=== PATIENT | male | born 1985 | race Caucasian/White ===

== ENCOUNTER 2018-03-31 17:42 | Emergency (ER) | payer BC ==
[2018-03-31 18:16] VITALS: BP 132/90
--- NOTE | 2018-03-31 18:25 | UC ---
General HPI - HPI Summary HPI Summary: Patient presents complaining of "severe pain along the right side of his neck" he states that this began about 3 weeks ago. He first noted the pain upon waking one morning and at that time the pain was in the base of his head on the right side and shooting into his right neck. He states that when the pain becomes severe it shoots right through his head into his right eye. He notes that this also causes him to have blurry vision in his right eye and the right eye turns red. He states that he has taken some ibuprofen without relief. During the course of these headaches he's had chiropractic adjustments approximately 4-5 times which may give him transient relief lasting anywhere from minutes to days. He notes that the current headache is an 11 out of 10. He admits that he's never had a headache this severe before. When the headaches reached their highest intensity they also cause him to have nausea. He denies any associated history of injury or illness. He denies any sensitivity to light or noise. He has no family history of headache or aneurysms. He saw the chiropractor today who ordered a c-spine xrays and sent him here. Pt denies and numbness or weakness to his arms or legs. - History of Current Complaint Chief Complaint: UCGeneralIllness Stated Complaint: NECK PAIN Time Seen by Provider: 03/31/18 18:07 Hx Obtained From: Patient Pain Intensity: 10 Associated Signs & Symptoms: Positive: Headache. Negative: Fever - Allergy/Home Medications Allergies/Adverse Reactions: Allergies Allergy/AdvReac Type Severity Reaction Status Date / Time Penicillins Allergy Unknown Verified 03/31/18 18:07 Reaction Details Home Medications: Home Medications Pantoprazole TAB (NF) [Protonix TAB (NF)] 20 mg PO BID 03/31/18 [History Confirmed 03/31/18] PMH/Surg Hx/FS Hx/Imm Hx Previously Healthy: Yes - Surgical History Surgical History: Yes Surgery Procedure, Year, and Place: Right outer ear surgery as an infant - Family History Known Family History: Positive: Blood Disorder - Social History Occupation: Employed Full-time Alcohol Use: every other day Substance Use Type: None Smoking Status (MU): Heavy Every Day Tobacco Smoker Type: Smokeless Tobacco Amount Used/How Often: 1/2 can daily Length of Time of Smoking/Using Tobacco: Since Age 28 - Immunization History Vaccination Up to Date: Yes Review of Systems Constitutional: Negative Skin: Negative Eyes: Negative ENT: Negative Respiratory: Negative Cardiovascular: Negative Gastrointestinal: Nausea Genitourinary: Negative Motor: Negative Neurovascular: Negative Musculoskeletal: Other: - R neck pain Neurological: Headache Psychological: Negative Is Patient Immunocompromised?: No All Other Systems Reviewed And Are Negative: Yes Physical Exam Triage Information Reviewed: Yes Appearance: Pain Distress Vital Signs: Initial Vital Signs Temp 98.7 F 03/31/18 18:05 Pulse 65 03/31/18 18:05 Resp 16 03/31/18 18:05 BP 132/90 03/31/18 18:05 Pulse Ox 100 03/31/18 18:05 Vital Signs Reviewed: Yes Eyes: Positive: Other: - ? slight buldge R eye. No periorbital edema. Conjunctiva on R injected. PERRL, EOMI. ENT: Positive: Pharynx normal, TMs normal. Negative: Nasal congestion, Nasal drainage Neck: Positive: Supple, No Lymphadenopathy, Other: - C-spine non tender but tender along R paraspinal muscles.. Negative: Nuchal Rigidity Respiratory: Positive: Lungs clear, Normal breath sounds Cardiovascular: Positive: RRR, No Murmur Abdomen Description: Positive: Nontender, Soft. Negative: Distended, Guarding Bowel Sounds: Positive: Present Musculoskeletal: Positive: Other: - Head is normocephalic and appears atraumatic. Patient is very tender over his right occipital region but no swelling or deformity noted. Neurological: Positive: Other: - Patient is alert and oriented to person place and time. Cranial nerves II through XII are grossly intact. He has 5 out of 5 strength and 2+ reflexes 4. He has a normal steady gait. He is able to perform rapid alternating moves with ease. Psychological: Positive: Age Appropriate Behavior Skin Exam: Normal Skin: Negative: rashes Diagnostics - Radiology No standard instances Radiology Interpretation Completed By: Radiologist - out patient c- spine.IMPRESSION: No radiographic evidence of fracture or subluxation. Course/Dx - Course Course Of Treatment: The tenderness on physical exam to his right occiput into the right side of his neck suggests a possible musculoskeletal component; however, given the fact that this is the worst headache he has ever experienced and the pain shoots into his head directly into his right eye causing blurry vision and injection of the right eye suggest a much more severe pathology such as a dissection or additional intracranial pathology including mass. I Explained to the patient I have concern for life-threatening causes of his headache and neck pain along with blurry vision and eye pain including a vascular dissection and explained what a vascular dissection is. I explained that this has the potential to be life-threatening. Initially, he agreed to go to the emergency room directly from here but was refusing ambulance citing he would drive himself despite the risk of car accident, worsening, disability and . We made copies of his outpatient x-rays and I spoke to the emergency room. I gave report to Peri Mcnally nurse practitioner. When I returned to the room with the nurse to discharge him, the patient was adamant that he was no longer interested in going to the emergency room. He states there is no way he is going to go to the emergency room until he follows up with his chiropractor in the morning and they go over his x-ray. I again explained to him my concern for life-threatening causes of his head and neck pain. He responded citing he knows that this is something more but "there is no way I'm going to any emergency room tonight". I again explained the risk of delayed of care, worsening, disability, and the potential for car accident but he still refused to go. At time of discharge he is alert and oriented. The patient is able to make decisions thus he is going to be leaving AGAINST MEDICAL ADVICE. I request his permission to speak to his chiropractor directly ; however, patient refused. - Differential Dx - Multi-Symptom Provider Diagnoses: Severe R occipital head and neck pain. R eye injection. R eye pain. Discharge - Sign-Out/Discharge Documenting (check all that apply): Patient Departure All imaging exams completed and their final reports reviewed: Yes - Discharge Plan Condition: Stable Disposition: AGAINST MEDICAL ADVICE Referrals: No Primary Care Phys,NOPCP [Primary Care Provider] - - Billing Disposition and Condition Condition: STABLE Disposition: Against Medical Advice
== END 2018-03-31 19:04 | disposition left against medical advice (07) ==
LOC: UCCORT 17:42
DX: M54.2 Cervicalgia (principal); H57.11 Ocular pain, right eye; R51 Headache; Z88.0 Allergy status to penicillin; F17.290 Nicotine dependence, other tobacco product, uncomplicated
CPT/HCPCS: 99212; G0463